=== PATIENT | male | born 1990 ===

== ENCOUNTER 2018-06-29 23:08 | Observation (INO) | payer BC ==
[~2018-06-29] VITALS: Ht 167.6 cm; Wt 100.4 kg
[2018-06-30] MEDS ORDERED: KETOROLAC 30 MG/1 ML IVPush ONE (00:30)
[2018-06-30] MEDS ORDERED: KETOROLAC 30 MG/1 ML ONE (00:31)
[2018-06-30 01:02] LABS: BASOPHILS # (AUTO) 0.05 x10^3/uL (0-0.1); BASOPHILS % (AUTO) 0 % (0-1); EOSINOPHILS # (AUTO) 0.03 x10^3/uL (0-0.4); EOSINOPHILS % (AUTO) 0 % (1-7); LYMPHOCYTES # (AUTO) 1.64 x10^3/uL (1-3.4); LYMPHOCYTES % (AUTO) 11 % (22-44); MD NO; MEAN CORPUSCULAR HEMOGLOBIN 29.1 pg (27.5-34.5); MEAN CORPUSCULAR HGB CONC 33.7 g/dL (33.2-36.2); MEAN CORPUSCULAR VOLUME 86.2 fL (81-97); MEAN PLATELET VOLUME 7.5 fL (7.4-10.4); MONOCYTES # (AUTO) 1.13 x10^3/uL (0.2-0.8); MONOCYTES % (AUTO) 8 % (2-9); NEUTROPHILS # (AUTO) 11.77 x10^3/uL (1.8-6.8); NEUTROPHILS % (AUTO) 81 % (42-75); PLATELET COUNT 403 x10^3/uL (130-400); RED BLOOD COUNT 4.78 x10^6/uL (4.38-5.82); RED CELL DISTRIBUTION WIDTH 13.4 % (9.4-14.8)
[2018-06-30 01:13] LABS: ALBUMIN 3.3 g/dL (3.4-5.0); ANION GAP 5 mmol/L (5-15); CALCIUM 8.4 mg/dL (8.5-10.1); CHLORIDE 109 mmol/L (98-107); CREATININE 0.88 mg/dL (0.7-1.3)
[2018-06-30] MEDS ORDERED: MORPHINE SULFATE 4 MG/ML, 1ML IVPush PRN (02:00)
[2018-06-30] MEDS ORDERED: ONDANSETRON 2MG/ML, 2ML IVPush PRN ×2 (02:00→05:00)
[2018-06-30 02:11] VITALS: BP 128/85
[2018-06-30 02:15] VITALS: BP 128/85
[2018-06-30] MEDS: OFLOXACIN EAR DROPS 0.3%, 5ML OTIC SCH ×3 (05:00→20:52)
[2018-06-30] MEDS ORDERED: ACETAMINOPHEN 325 MG TABLET PO PRN (05:00)
[2018-06-30] MEDS: SODIUM CHLORIDE 0.9% 1,000 ML IV SCH ×2 (05:03→18:31)
[2018-06-30 07:31] VITALS: BP 143/93
[2018-06-30] MEDS: IBUPROFEN 600 MG TABLET PO PRN ×2 (08:12→14:20)
[2018-06-30] MEDS: AMOXICILLIN/CLAV 875-125MG TABLET PO SCH ×2 (08:12→20:52)
[2018-06-30] MEDS: PSEUDOEPHEDRINE 30 MG TABLET PO SCH ×3 (10:44→22:07)
[2018-06-30 14:11] VITALS: BP 144/91
[2018-06-30] MEDS: MORPHINE SULFATE 4 MG/ML, 1ML IVPush PRN (17:26)
[2018-06-30 20:00] VITALS: BP 132/87
[2018-07-01 02:00] VITALS: BP 132/91
[2018-07-01] MEDS: MORPHINE SULFATE 4 MG/ML, 1ML IVPush PRN (02:05)
[2018-07-01] MEDS: PSEUDOEPHEDRINE 30 MG TABLET PO SCH ×2 (04:07→09:21)
[2018-07-01] MEDS: IBUPROFEN 600 MG TABLET PO PRN ×2 (05:26→12:06)
[2018-07-01 05:52] LABS: BASOPHILS # (AUTO) 0.03 x10^3/uL (0-0.1); BASOPHILS % (AUTO) 0 % (0-1); CHLORIDE 106 mmol/L (98-107); EOSINOPHILS # (AUTO) 0.15 x10^3/uL (0-0.4); EOSINOPHILS % (AUTO) 1 % (1-7); LYMPHOCYTES # (AUTO) 1.88 x10^3/uL (1-3.4); LYMPHOCYTES % (AUTO) 16 % (22-44); MD NO; MEAN CORPUSCULAR HEMOGLOBIN 29.4 pg (27.5-34.5); MEAN CORPUSCULAR HGB CONC 33.9 g/dL (33.2-36.2); MEAN CORPUSCULAR VOLUME 86.7 fL (81-97); MEAN PLATELET VOLUME 7.7 fL (7.4-10.4); MONOCYTES # (AUTO) 0.99 x10^3/uL (0.2-0.8); MONOCYTES % (AUTO) 8 % (2-9); NEUTROPHILS # (AUTO) 8.77 x10^3/uL (1.8-6.8); NEUTROPHILS % (AUTO) 74 % (42-75); PLATELET COUNT 406 x10^3/uL (130-400); RED BLOOD COUNT 4.62 x10^6/uL (4.38-5.82); RED CELL DISTRIBUTION WIDTH 13.3 % (9.4-14.8)
[2018-07-01 05:58] LABS: ANION GAP 9 mmol/L (5-15); CALCIUM 8.4 mg/dL (8.5-10.1); CREATININE 0.79 mg/dL (0.7-1.3)
[2018-07-01] MEDS: OFLOXACIN EAR DROPS 0.3%, 5ML OTIC SCH (08:08)
[2018-07-01] MEDS: SODIUM CHLORIDE 0.9% 1,000 ML IV SCH (08:08)
[2018-07-01] MEDS: AMOXICILLIN/CLAV 875-125MG TABLET PO SCH (08:08)
[2018-07-01 08:15] VITALS: BP 120/83
[2018-07-01] MEDS ORDERED: PSEU30TA24 PO (10:33)
[2018-07-01] MEDS ORDERED: OFLO5DRO7 OTIC (10:33)
[2018-07-01] MEDS ORDERED: AMOX1TAB12 PO (10:33)
== END 2018-07-01 12:40 | disposition home or self-care (01) ==
LOC: ED 06-30 01:27 → INTOOBSV 06-30 01:33 → 4EST 06-30 01:33 → ED 06-30 01:44 → DCLOUNGE 07-01 12:35
PROVIDERS: ADMIT Hospitalist; ATTEND Hospitalist
DX: H66.92 Otitis media, unspecified, left ear (principal); H70.92 Unspecified mastoiditis, left ear
CPT/HCPCS: 36415; 80048; 82040; 83735; 85025; 96374; 96375; 96376; 99285; G0378; J1885; J7030